=== PATIENT | male | born 1970 | race Caucasian/White ===

== ENCOUNTER 2020-12-23 07:57 | Emergency (ER) | payer OTHER ==
--- NOTE | 2020-12-23 08:22 | ED Physician Documentation ---
History of Present Illness - Stated complaint Stated Complaint: MALE - Chief complaint Chief Complaint: General - History obtained from History obtained from: Patient - History of Present Illness Timing: Yesterday Pain level max: 3 Pain level now: 2 - Additonal information Additional information: Patient is a 50-year-old male who presents to the emergency department today with left testicular pain since yesterday, rated as a 2 or 3 out of 10. Nothing makes it better. Worse with palpation. He states he had similar symptoms after a hernia repair. Patient states that this improved with changing from boxers to briefs. No changes in sexual partners. No STD exposure. No penile discharge. No redness or swelling to the testicle. Most of the pain is on the top of the testicle. Review of Systems Constitutional: denies: Fever, Chills GI: denies: Vomiting, Diarrhea Skin: denies: Rash Musculoskeletal: denies: Neck pain, Back pain Neurologic: denies: Headache PD PAST MEDICAL HISTORY - Past Medical History Past Medical History: Yes Cardiovascular: Hypertension, High cholesterol - Past Surgical History Past Surgical History: Yes General: Other (inguinal hernia) - Present Medications Home Medications: Ambulatory Orders Medication Instructions Recorded Confirmed Losartan Potassium 25 mg PO DAILY 12/23/20 12/23/20 Simvastatin [Zocor] 20 mg PO DAILY 12/23/20 12/23/20 levoFLOXacin [Levofloxacin] 500 mg PO DAILY #10 tablet 12/23/20 - Allergies Allergies/Adverse Reactions: Allergies Allergy/AdvReac Type Severity Reaction Status Date / Time Latex, Natural Rubber Allergy Hives Verified 12/23/20 08:05 - Living Situation Living Arrangement: reports: At home - Social History Does the pt have substance abuse?: No PD ED PE NORMAL - Vitals Vital signs reviewed: Yes - General General: Alert and oriented X 3, No acute distress, Well developed/nourished - HEENT HEENT: Moist mucous membranes - Neck Neck: Supple, no meningeal sign - Cardiac Cardiac: RRR - Respiratory Respiratory: No respiratory distress, Clear bilaterally - Abdomen Abdomen: Soft, Non tender, Non distended - Male Male : Other (mild TTP L testicle, near the top of the testicle. normal lie. no swelling. no skin changes. o/w normal exam) - Derm Derm: Warm and dry - Neuro Neuro: Alert and oriented X 3 - Psych Psych: Normal mood, Normal affect Results - Vitals Vitals: Vital Signs - 24 hr 12/23/20 12/23/20 08:03 10:05 Temperature 36.4 C L 36.8 C Heart Rate 63 57 L Respiratory 16 14 Rate Blood Pressure 153/82 H 148/86 H O2 Saturation 96 97 Oxygen O2 Source Room air - Labs Labs: Laboratory Tests 12/23/20 09:45 Urine Color YELLOW Urine Clarity CLEAR Urine pH 7.5 Ur Specific [place] 1.020 Urine Protein NEGATIVE Urine Glucose (UA) NEGATIVE Urine Ketones NEGATIVE Urine Occult Blood NEGATIVE Urine Nitrite NEGATIVE Urine Bilirubin NEGATIVE Urine Urobilinogen 0.2 (NORMAL) Ur Leukocyte Esterase NEGATIVE Ur Microscopic Review NOT INDICATED Urine Culture Comments NOT INDICATED - Rads (name of study) testicular US Radiology: Final report received, EMP read contemporaneously, See rad report PD MEDICAL DECISION MAKING - ED course Complexity details: reviewed results, re-evaluated patient, considered differential, d/w patient ED course: History and physical exam are consistent with epididymitis. Patient denies any STD risk factors. We will treat with Levaquin. Patient is well-appearing, nontoxic. Afebrile. Bactrim not chosen because of the interactions with his other medications. Patient counseled regarding signs and symptoms for which I believe and urgent re-evaluation would be necessary. Patient with good understanding of and agreement to plan and is comfortable going home at this time This document was made in part using voice recognition software. While efforts are made to proofread this document, sound alike and grammatical errors may occur. IMPRESSION: 1. Prominent left epididymal body and tail with hyperemia. Findings most compatible with left epididymitis. 2. Left varicocele. Small bilateral hydroceles. 3. No testicular mass. Departure - Departure Disposition: 01 Home, Self Care Clinical Impression: Epididymitis Condition: Good Instructions: ED Epididymitis Follow-Up: your,doctor in 1 week [Other] Prescriptions: levoFLOXacin [Levofloxacin] 500 mg PO DAILY #10 tablet Comments: Take all antibiotics until gone. Return if you worsen. You do have epididymitis on your ultrasound Discharge Date/Time: 12/23/20 10:45
--- NOTE | 2020-12-23 09:51 | Ultrasound Report ---
PROCEDURE: Testicle w/Doppler INDICATIONS: L testicular pain TECHNIQUE: Real-time scanning was performed of the scrotum and testicles, with image documentation. Color and p ulse Doppler interrogation was performed of both testicles. COMPARISON: None. FINDINGS: Right: Testicle is normal in size at 4.4 x 3.2 x 2.1 cm, and homogenous in echotexture. Epididymis is normal in overall size and morphology. Small hydrocele. No varicocele. Overlying scrotal skin is normal in thickness. Right scrotal calcification measuring 0.4 cm. Left: Testicle is normal in size at 4.3 x 3 x 2.4 cm, and homogeneous in echotexture. Left epididyma l body and tail are enlarged with hyperemia. Small hydrocele. Varicocele is present. Overlying scrot al skin is normal in thickness. Doppler: Color and pulse Doppler demonstrate normal and symmetric arterial flow in both testicles. A symmetric increased blood flow in the left epididymis. IMPRESSION: 1. Prominent left epididymal body and tail with hyperemia. Findings most compatible with left epididy mitis. 2. Left varicocele. Small bilateral hydroceles. 3. No testicular mass. Reviewed by: Michael Goemz MD on 12/23/2020 9:49 AM PDT Approved by: Michael Gomez MD on 12/23/2020 9:49 AM PDT Station ID: [id number]
[2020-12-23 09:54] LABS: BILIRUBIN,URINE NEGATIVE (NEGATIVE); GLUCOSE, URINE (UA) NEGATIVE (NEGATIVE); KETONES,URINE (UA) NEGATIVE (NEGATIVE); LEUKOCYTE ESTERASE, URINE NEGATIVE (NEGATIVE); NITRITE,URINE NEGATIVE (NEGATIVE); OCCULT BLOOD,URINE NEGATIVE (NEGATIVE); PH,URINE 7.5 PH (5.0-7.5); PROTEIN,URINE NEGATIVE (NEGATIVE); UROBILINOGEN,URINE 0.2 (NORMAL) E.U./dL (NORMAL)
[2020-12-23 09:55] LABS: CLARITY,URINE CLEAR (CLEAR)
[2020-12-23 10:12] VITALS: BP 148/86
== END 2020-12-23 10:45 | disposition home or self-care (01) ==
LOC: ED 07:57
DX: N45.1 Epididymitis (principal); I10 Essential (primary) hypertension
CPT/HCPCS: 81001; 81003; 87086; 93975; 99284